=== PATIENT | female | born 1990 | race Caucasian/White ===

== ENCOUNTER 2016-10-08 18:06 | Emergency (ER) | payer OTHER ==
[2016-10-08 19:45] LABS: MEAN CORPUSCULAR HEMOGLOBIN 29.7 pg (27.0-33.0); MEAN CORPUSCULAR HGB CONC 31.9 g/dl (32.0-36.5); MEAN CORPUSCULAR VOLUME 93.2 fl (80.0-96.0); RED CELL DISTRIBUTION WIDTH 14.3 % (11.5-14.5); WHITE BLOOD COUNT 10.2 K/mm3 (4.0-10.0)
[2016-10-08 20:08] LABS: AMPHETAMINES LEVEL URINE POSITIVE (NEGATIVE); BENZODIAZEPINES URINE NEGATIVE (NEGATIVE); COCAINE METABOLITE URINE NEGATIVE (NEGATIVE); CONTROL LINE INT CTR LINE PRESENT; METHADONE URINE NEGATIVE (NEGATIVE); OPIATES URINE NEGATIVE (NEGATIVE); TRICYCLIC ANTIDEPRESS URINE POSITIVE (NEGATIVE)
[2016-10-08 20:13] LABS: CONTROL LINE HCG INT CTR LINE PRESENT
[2016-10-08 20:25] LABS: ALBUMIN 4.2 GM/DL (3.2-5.2); ALBUMIN/GLOBULIN RATIO 1.05 (1.00-1.93); ALKALINE PHOSPHATASE 94 U/L (45-117); ALT/SGPT 24 U/L (12-78); ANION GAP 8 MEQ/L (8-16); AST/SGOT 18 U/L (15-37); BILIRUBIN,DIRECT 0.1 MG/DL (0.0-0.2); BILIRUBIN,TOTAL 0.3 MG/DL (0.2-1.0); BLOOD UREA NITROGEN 14 MG/DL (7-18); CALCIUM LEVEL 9.4 MG/DL (8.5-10.1); CARBON DIOXIDE LEVEL 29 MEQ/L (21-32); CHLORIDE LEVEL 104 MEQ/L (98-107); CREATININE FOR GFR 0.86 MG/DL (0.55-1.02); GLOMERULAR FILTRATION RATE > 60.0 (>60); GLUCOSE, FASTING 103 MG/DL (70-105); SODIUM LEVEL 141 MEQ/L (136-145); TOTAL PROTEIN 8.2 GM/DL (6.4-8.2)
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
--- NOTE | 2016-10-08 22:03 | EDDOCDS ---
Physician Documentation [facility] Name: Saskia Jackson Age: 25 yrs Sex: Female : 1990 Arrival Date: 10/08/2016 Time: 18:06 Bed OBSERVATION Private MD: Disposition: 10/08/16 20:49 Discharged to Home/Self Care. Impression: Adult antisocial behavior, Inadequate social skills, not elsewhere classified. - Condition is Stable. - Medication Reconciliation, Local Pharmacy Hours form. - Follow up: Private Physician; When: Call to arrange an appointment; Reason: Recheck today's complaints. - Problem is an ongoing problem. - Symptoms have improved. Historical: - Allergies: no known allergies; - Home Meds: 1. Adderall XR 10 mg Oral cp24 1 cap once daily 2. Vistaril Oral Unknown 3. Trazodone Oral Unknown 4. Amitriptyline Oral Unknown - PMHx: ADHD; C7 fracture; chronic neck and back pain; right rib fracture; - PSHx: none; - Social history: Smoking status: Patient states was never smoker of tobacco. No barriers to communication noted, The patient speaks fluent [place], Speaks appropriately for age. - Family history: Not pertinent. - : The pt / caregiver states he / she is not on anticoagulants. Home medication list is obtained from the patient. - Exposure Risk Screening:: None identified. 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 2 in. (157.48 cm); pml 18:55 Pulse 156; Resp 28; Temp 100.0(O); Pulse Ox 97% on R/A; dpm 22:00 BP 134 / 88; Pulse 102; Resp 18; Temp 97.2(O); Pulse Ox 96% on R/A; rw1 18:48 Body Mass Index 20.12 (49.90 kg, 157.48 cm) pml MDM: 18:55 Consult PFS/PSA/Operations Manager Station ordered. cs11 18:55 Consult PFS/PSA/Operations Manager Station: Patient's case requires discussion with on-call cs11 Psychiatrist ordered. 18:55 PSA/PFS to call Nursing Rubber Splicer, to enter patient data on [place] Safe [place] if patient cs11 involuntarily admitted or transferred for SI or HI ordered. 18:55 Confirm accurate psychiatric medication list and times of last dosage ordered. cs11 18:55 Detain Pt Until Medically/PFS Cleared ordered. cs11 18:56 Acetaminophen Level Ordered. EDMS 18:56 Basic Metabolic Profile Ordered. EDMS 18:56 Complete Blood Count Ordered. EDMS 18:56 Drug Eval Toxicology ED Only Ordered. EDMS 18:56 Ethyl Alcohol (ethanol) Ordered. EDMS 18:56 HCG,Serum Qualitative Ordered. EDMS 18:56 Liver Profile Ordered. EDMS 18:56 Salicylate Level Ordered. EDMS 18:56 Thyroid Stimulating Hormone Ordered. EDMS 20:46 Acetaminophen Level Reviewed. cs11 20:46 Complete Blood Count Reviewed. cs11 20:46 Drug Eval Toxicology ED Only Reviewed. cs11 20:46 Salicylate Level Reviewed. cs11 20:46 Basic Metabolic Profile Reviewed. cs11 20:46 Ethyl Alcohol (ethanol) Reviewed. cs11 20:46 HCG,Serum Qualitative Reviewed. cs11 20:46 Liver Profile Reviewed. cs11 20:46 Thyroid Stimulating Hormone Reviewed. cs11 20:48 Consult PFS/PSA/Socail Worker: Cleared medically for eval ordered. cs11 20:59 [facility] Payment Agreement was scanned into [employer] and attached to record. zo 21:00 Financial registration complete. zo 21:10 Consult PFS/PSA/Socail Worker: Cleared medically for eval complete. jfb 21:10 Consult PFS/PSA/Operations Manager Station complete. jfb 21:10 Consult PFS/PSA/Operations Manager Station: Patient's case requires discussion with on-call jfb Psychiatrist complete. 21:10 PSA/PFS to call Nursing Rubber Splicer, to enter [place] data [place] if patient jfb involuntarily admitted or transferred for SI or HI complete. 21:22 Spine, Lumbosacral, Partial Ordered. EDMS Signatures: Dispatcher [employer] EDMS Marin Ocampo LPN LPN rw1 [place] Julie, PSA PSA jfb Quay, Paulina, RN RN pml Schiff, Craig, DO DO cs11 The chart was reviewed and I authenticate all verbal orders and agree with the evaluation and treatment provided.Attachments: 20:59 [facility] Payment Agreement zo MTDD
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
--- NOTE | 2016-10-10 23:04 | EDDOCDS ---
Physician Documentation [facility] Name: Saskia Jackson Age: 25 yrs Sex: Female : 1990 Arrival Date: 10/08/2016 Time: 18:06 Bed OBSERVATION Private MD: Disposition: 10/08/16 20:49 Discharged to Home/Self Care. Impression: Adult antisocial behavior, Inadequate social skills, not elsewhere classified. - Condition is Stable. - Medication Reconciliation, Local Pharmacy Hours form. - Follow up: Private Physician; When: Call to arrange an appointment; Reason: Recheck today's complaints. - Problem is an ongoing problem. - Symptoms have improved. Historical: - Allergies: no known allergies; - Home Meds: 1. Adderall XR 10 mg Oral cp24 1 cap once daily 2. Vistaril Oral Unknown 3. Trazodone Oral Unknown 4. Amitriptyline Oral Unknown - PMHx: ADHD; C7 fracture; chronic neck and back pain; right rib fracture; - PSHx: none; - Social history: Smoking status: Patient states was never smoker of tobacco. No barriers to communication noted, The patient speaks fluent Nigerien, Speaks appropriately for age. - Family history: Not pertinent. - : The pt / caregiver states he / she is not on anticoagulants. Home medication list is obtained from the patient. - Exposure Risk Screening:: None identified. 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 2 in. (157.48 cm); pml 18:55 Pulse 156; Resp 28; Temp 100.0(O); Pulse Ox 97% on R/A; dpm 22:00 BP 134 / 88; Pulse 102; Resp 18; Temp 97.2(O); Pulse Ox 96% on R/A; rw1 18:48 Body Mass Index 20.12 (49.90 kg, 157.48 cm) pml MDM: 18:55 Consult PFS/PSA/Nurse Orthopedic ordered. cs11 18:55 Consult PFS/PSA/Nurse Orthopedic: Patient's case requires discussion with on-call cs11 Psychiatrist ordered. 18:55 PSA/PFS to call Nursing Head Of History, to enter [place] data [place] if patient cs11 involuntarily admitted or transferred for SI or HI ordered. 18:55 Confirm accurate psychiatric medication list and times of last dosage ordered. cs11 18:55 Detain Pt Until Medically/PFS Cleared ordered. cs11 18:56 Acetaminophen Level Ordered. EDMS 18:56 Basic Metabolic Profile Ordered. EDMS 18:56 Complete Blood Count Ordered. EDMS 18:56 Drug Eval Toxicology ED Only Ordered. EDMS 18:56 Ethyl Alcohol (ethanol) Ordered. EDMS 18:56 HCG,Serum Qualitative Ordered. EDMS 18:56 Liver Profile Ordered. EDMS 18:56 Salicylate Level Ordered. EDMS 18:56 Thyroid Stimulating Hormone Ordered. EDMS 20:46 Acetaminophen Level Reviewed. cs11 20:46 Complete Blood Count Reviewed. cs11 20:46 Drug Eval Toxicology ED Only Reviewed. cs11 20:46 Salicylate Level Reviewed. cs11 20:46 Basic Metabolic Profile Reviewed. cs11 20:46 Ethyl Alcohol (ethanol) Reviewed. cs11 20:46 HCG,Serum Qualitative Reviewed. cs11 20:46 Liver Profile Reviewed. cs11 20:46 Thyroid Stimulating Hormone Reviewed. cs11 20:48 Consult PFS/PSA/Socail Worker: Cleared medically for eval ordered. cs11 20:59 [facility] [place] Agreement was scanned into [employer] and attached to record. zo 21:00 Financial registration complete. zo 21:10 Consult PFS/PSA/Socail Worker: Cleared medically for eval complete. jfb 21:10 Consult PFS/PSA/Nurse Orthopedic complete. jfb 21:10 Consult PFS/PSA/Nurse Orthopedic: Patient's case requires discussion with on-call jfb Psychiatrist complete. 21:10 PSA/PFS to call Nursing Head Of History, to [place] if patient jfb involuntarily admitted or transferred for SI or HI complete. 21:22 Spine, Lumbosacral, Partial Ordered. EDMS 22:07 M[facility] Legal paperwork was scanned into [employer] and attached to record. shilo 10/09 09:52 PCR was scanned into [employer] and attached to record. gb 09:52 T-Sheet-- Draft Copy was scanned into [employer] and attached to record. gb Signatures: Dispatcher [employer] EDMS Danis Huang, PSA PSA jl Isabelle Edward, Reg Reg gb Marin Ocampo,CONVERTING OPERATOR CONVERTING OPERATOR rw1 Sydney Sohre Julie, PSA PSA jfb Quay, Paulina,RN RN pml Brian Su, DO cs11 The chart was reviewed and I authenticate all verbal orders and agree with the evaluation and treatment provided.Attachments: 10/08 20:59 [facility] Payment Agreement zo 09:52 T-Sheet-- Draft Copy gb Chart Complete MTDD
--- NOTE | 2016-10-10 23:04 | EDDOCDS ---
Physician Documentation [facility] Name: Saskia Jackson Age: 25 yrs Sex: Female : 1990 Arrival Date: 10/08/2016 Time: 18:06 Bed OBSERVATION Private MD: Disposition: 10/08/16 20:49 Discharged to Home/Self Care. Impression: Adult antisocial behavior, Inadequate social skills, not elsewhere classified. - Condition is Stable. - Medication Reconciliation, Local Pharmacy Hours form. - Follow up: Private Physician; When: Call to arrange an appointment; Reason: Recheck today's complaints. - Problem is an ongoing problem. - Symptoms have improved. Historical: - Allergies: no known allergies; - Home Meds: 1. Adderall XR 10 mg Oral cp24 1 cap once daily 2. Vistaril Oral Unknown 3. Trazodone Oral Unknown 4. Amitriptyline Oral Unknown - PMHx: ADHD; C7 fracture; chronic neck and back pain; right rib fracture; - PSHx: none; - Social history: Smoking status: Patient states was never smoker of tobacco. No barriers to communication noted, The patient speaks fluent Vietnamese, Speaks appropriately for age. - Family history: Not pertinent. - : The pt / caregiver states he / she is not on anticoagulants. Home medication list is obtained from the patient. - Exposure Risk Screening:: None identified. FINISH GRINDER: 10/08 18:27 LMP 10/03/2015 pml Vital Signs: 18:48 Weight 49.9 kg / 110.01 lbs; Height 5 ft. 2 in. (157.48 cm); pml 18:55 Pulse 156; Resp 28; Temp 100.0(O); Pulse Ox 97% on R/A; dpm 22:00 BP 134 / 88; Pulse 102; Resp 18; Temp 97.2(O); Pulse Ox 96% on R/A; rw1 18:48 Body Mass Index 20.12 (49.90 kg, 157.48 cm) pml MDM: 18:55 Consult PFS/PSA/Associate Attorney ordered. cs11 18:55 Consult PFS/PSA/Associate Attorney: Patient's case requires discussion with on-call cs11 Psychiatrist ordered. 18:55 PSA/PFS to call Nursing Blow Down Helper, to enter patient data on [place] Safe Act if patient cs11 involuntarily admitted or transferred for SI or HI ordered. 18:55 Confirm accurate psychiatric medication list and times of last dosage ordered. cs11 18:55 Detain Pt Until Medically/PFS Cleared ordered. cs11 18:56 Acetaminophen Level Ordered. EDMS 18:56 Basic Metabolic Profile Ordered. EDMS 18:56 Complete Blood Count Ordered. EDMS 18:56 Drug Eval Toxicology ED Only Ordered. EDMS 18:56 Ethyl Alcohol (ethanol) Ordered. EDMS 18:56 HCG,Serum Qualitative Ordered. EDMS 18:56 Liver Profile Ordered. EDMS 18:56 Salicylate Level Ordered. EDMS 18:56 Thyroid Stimulating Hormone Ordered. EDMS 20:46 Acetaminophen Level Reviewed. cs11 20:46 Complete Blood Count Reviewed. cs11 20:46 Drug Eval Toxicology ED Only Reviewed. cs11 20:46 Salicylate Level Reviewed. cs11 20:46 Basic Metabolic Profile Reviewed. cs11 20:46 Ethyl Alcohol (ethanol) Reviewed. cs11 20:46 HCG,Serum Qualitative Reviewed. cs11 20:46 Liver Profile Reviewed. cs11 20:46 Thyroid Stimulating Hormone Reviewed. cs11 20:48 Consult PFS/PSA/Socail Worker: Cleared medically for eval ordered. cs11 20:59 [facility] Payment Agreement was scanned into [employer] and attached to record. zo 21:00 Financial registration complete. zo 21:10 Consult PFS/PSA/Socail Worker: Cleared medically for eval complete. jfb 21:10 Consult PFS/PSA/Associate Attorney complete. jfb 21:10 Consult PFS/PSA/Associate Attorney: Patient's case requires discussion with on-call jfb Psychiatrist complete. 21:10 PSA/PFS to call Nursing Blow Down Helper, to enter patient data [place] Safe [place] if patient jfb involuntarily admitted or transferred for SI or HI complete. 21:22 Spine, Lumbosacral, Partial Ordered. EDMS 22:07 [facility] Legal paperwork was scanned into [employer] and attached to record. shilo 10/09 09:52 PCR was scanned into [employer] and attached to record. gb 09:52 T-Sheet-- Draft Copy was scanned into [employer] and attached to record. gb Signatures: Dispatcher [employer] EDMS Danis Huang, PSA PSA jl Isabelle Edward, Reg Reg gb Marin Ocampo,HEAD TRIMMER HEAD TRIMMER rw1 [place] Julie, PSA PSA jfb Quay, Paulina,RN RN pml Brian Su, DO cs11 The chart was reviewed and I authenticate all verbal orders and agree with the evaluation and treatment provided.Attachments: 10/08 20:59 [facility] Payment Agreement zo 09:52 T-Sheet-- Draft Copy gb Chart Complete MTDD
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
== END 2016-10-08 22:02 | disposition home or self-care (01) ==
LOC: M ED 18:06
DX: Z72.811 Adult antisocial behavior (principal); Z73.4 Inadequate social skills, not elsewhere classified; F90.9 Attention-deficit hyperactivity disorder, unspecified type; M54.9 Dorsalgia, unspecified; Z87.81 Personal history of (healed) traumatic fracture; Z79.899 Other long term (current) drug therapy
CPT/HCPCS: 36415; 72100; 80048; 80076; 80306; 84443; 84703; 85027; 99284; G0480

== ENCOUNTER → 2016-10-08 | Outpatient (CLI) | payer OTHER ==
[~2016-10-08] MED LIST: ADDE10CA PO; ANBEEL TOP; LEXA1TAB PO; LIDO5DIS36 TD; METH-107 PO; MOTR200T44 PO; ORTHTAB5 PO; TOPA50TA7 PO; TRAZ50TA4 PO; TYLE325T5 PO; ZANA2CAP PO
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
== END ==
LOC: M PAIN 13:20
PROVIDERS: ATTEND Nurse Practitioner Family
DX: M79.1 Myalgia (principal); M54.2 Cervicalgia; Z79.899 Other long term (current) drug therapy; F32.9 Major depressive disorder, single episode, unspecified; Z87.891 Personal history of nicotine dependence

== ENCOUNTER → 2016-12-30 | Outpatient (CLI) | payer OTHER ==
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
== END ==
LOC: M PAIN 13:20
PROVIDERS: ATTEND Nurse Practitioner Family
DX: M79.1 Myalgia (principal); M54.2 Cervicalgia; G43.909 Migraine, unspecified, not intractable, without status migrainosus; F32.9 Major depressive disorder, single episode, unspecified; G47.00 Insomnia, unspecified; F43.10 Post-traumatic stress disorder, unspecified; R41.3 Other amnesia; Z79.899 Other long term (current) drug therapy; Z91.5 Personal history of self-harm

== ENCOUNTER → 2017-01-03 | Outpatient (CLI) | payer OTHER ==
[~2017-01-03] MED LIST changes: +BUPIVACAINE HCL 0.25% 10 ML VIAL As Ordered ONE; +BUPIVACAINE HCL 0.25% 30 ML VIAL As Ordered ONE; +TRIAMCINOLONE ACETONIDE SUSP 40 MG/ML VIAL (J3301) As Ordered ONE; +diazePAM 5 MG TAB As Ordered ONE; +oxyCODONE 5MG TAB As Ordered ONE
--- NOTE | 2017-01-09 23:28 | ECWPNPC ---
PATIENT NAME: DAYNA VELARDE : 1990 GENDER: FEMALE VISIT DATE: 01/03/2017 DISCHARGE DATE: 01/03/17 1454 VISIT LOCKED DATE TIME: PHYSICIAN: STEVE GARCIAS RESOURCE: STEVE GARCIAS REASON FOR APPOINTMENT 1. TPI HISTORY OF PRESENT ILLNESS HISTORY OF PRESENT ILLNESS: PAIN THE PATIENT DESCRIBES THE PAIN... FALL RISK SCREENING: SCREENING :NO FALLS IN THE PAST YEAR CURRENT MEDICATIONS TAKING ADDERALL XR 20 MG CAPSULE EXTENDED RELEASE 24 HOUR 1 CAPSULE IN THE MORNING ORALLY ONCE A DAY, NOTES: 01/02/17 1100 TAKING TRAZODONE HCL 150 MG TABLET 1 TABLET AT BEDTIME ORALLY ONCE A DAY, NOTES: 01/02/172099 TAKING VENLAFAXINE HCL ER 225 MG TABLET EXTENDED RELEASE 24 HOUR 1 TABLET WITH FOOD ORALLY ONCE A DAY, NOTES: 01/02/172129 TAKING ORTHO TRI-CYCLEN (28) 0.18/0.215/0.25 MG-35 MCG TABLET 1 TABLET ORALLY ONCE A DAY, NOTES: NONE LAST WEEK TAKING TOPAMAX 100 MG TABLET 1 TABLET ORALLY TWICE A DAY, NOTES: 01/02/172129 TAKING PROPRANOLOL HCL 60 MG TABLET 1 TABLET ORALLY TWICE A DAY, NOTES: 01/02/172129 TAKING SEROQUEL 50 MG TABLET 1 TABLET ORALLY ONCE A DAY, NOTES: 01/01/17 NOT-TAKING VISTARIL 50 MG CAPSULE 2 CAPSULES ORALLY TID NOT-TAKING IRON-C 65MGS 1 CAP ORALLY DAILY NOT-TAKING VITAMIN D-3 1000 UNIT CAPSULE 1 CAPSULE ORALLY ONCE A DAY NOT-TAKING VITAMIN B-2 100 MG TABLET 1 TABLET WITH A MEAL ORALLY ONCE A DAY NOT-TAKING FISH OIL 500 MG CAPSULE 1 CAPSULE ORALLY DAILY NOT-TAKING MELATONIN 3 MG TABLET 1 TABLET AT BEDTIME NEEDED WITH FOOD ORALLY ONCE A DAY NOT-TAKING AMITRIPTYLINE HCL 10 MG TABLET 1 TABLET ORALLY 1 TAB IN A.M., 3 TABS IN P.M. NOT-TAKING ZOLMITRIPTAN 2.5 MG TABLET 1 TABLET NEEDED ONE TIME ORALLY ONCE A DAY MEDICATION LIST REVIEWED AND RECONCILED WITH THE PATIENT PAST MEDICAL HISTORY DEPRESSION INSOMNIA AMNESIA, PTBI POST MVI BACK, NECK PAIN PTSD SUICIDE ATTEMPT ALLERGIES N.K.D.A. SOCIAL HISTORY GENERAL: PAIN CLINIC PFS, CLERGY, PUBLIC HEALTH REFERRALS CLERGY REFERRAL NEEDED?NO WAS THE PROVIDER NOTIFIED OF ANY PERTINENT INFO?NO PFS REFERRAL NEEDED?NO PUBLIC HEALTH REFERRAL NEEDED?NO PATIENT: ____. REVIEW OF SYSTEMS CONSTITUTIONAL: ANY CHANGE IN YOUR MEDICAL CONDITION? NO . CHILLS NO . FEVER NO . INFECTION: DO YOU HAVE NEW INFECTIONS? NO . DO YOU HAVE HISTORY OF MRSA? NO . MUSCULOSKELETAL: ANY NEW PATTERNS OF PAIN OR NUMBNESS? NO . GASTROENTEROLOGY: ANY NEW CHANGE IN BOWEL CONTROL? NO . GENITOURINARY: ANY NEW CHANGE IN BLADDER CONTROL? NO . IS THERE A CHANCE YOU COULD BE ? NO . HEMATOLOGY/LYMPH: DO YOU TAKE ANY BLOOD THINNERS? (FOR EXAMPLE- COUMADIN, PLAVIX, AGGRENOX, PLATEL, PRADAXA, OR XARELTO) NO . WHEN WAS YOUR LAST DOSE? DATE: TIME: . NEUROLOGY: HAVE YOU FALLEN IN THE PAST 6 MONTHS? YES NO ED EVAL . ANY NEW EXTREMITY NUMBNESS OR WEAKNESS? NO . CARDIOLOGY: DO YOU HAVE A PACEMAKER OR DEFIBRILLATOR? NO . RESPIRATORY: HAVE YOU BEEN SICK IN THE PAST WEEK? NO . FEVER NO . FLU LIKE SYMPTOMS? NO . COUGH NO . INTEGUMENTARY: DO YOU HAVE ANY RASHES OR OPEN SORES? NO . ALLERGIC/IMMUNO: ARE YOU ALLERGIC TO SHELLFISH OR IV DYE? NO . ANY NEW ALLERGIES? NO . PSYCHIATRIC: DO YOU HAVE THOUGHTS OF HURTING YOURSELF OR SOMEONE ELSE? NO . ARE YOU ABUSED, NEGLECTED, OR IN AN UNSAFE ENVIRONMENT? NO . ENDOCRINOLOGY: ARE YOU DIABETIC? NO . OTHER: DO YOU NEED ANY PRESCRIPTIONS? NO . IF YES, PLEASE LIST: ____ . ANY NEW PROBLEMS WITH YOUR MEDICATIONS? NO . WHEN DID YOU LAST EAT? ____01/02/17 2100 . WHEN DID YOU LAST DRINK? ____01/03/17 1000 . WHAT DID YOU LAST DRINK? ____WATER . NAME OF PERSON DRIVING YOU HOME? ____ALYSSA . DO YOU HAVE ANY OTHER QUESTIONS OR CONCERNS NO . REVIEWED BY: PROVIDER: . VITAL SIGNS WT 125 LBS, HT 63", BMI 22.14 INDEX, BP 105/62 MM HG, HR 73 /MIN, RR 16 /MIN, TEMP 97.7 F, OXYGEN SAT % 97, NA INITIALS AW 1335, REVIEWED BY: MLF. ASSESSMENTS MYALGIA - M79.1 (PRIMARY) PROCEDURES PN TRIGGER POINT INJECTION WITH STEROIDS PRE PROCEDURE DIAGNOSIS 1. MYALGIA 2. PAIN AT BILATERAL NECK AREA, BILATERAL SHOULDER AREA, AND BILATERAL THORACIC AREA POST PROCEDURE DIAGNOSIS 1. MYALGIA 2. PAIN AT BILATERAL NECK AREA, BILATERAL SHOULDER AREA, AND BILATERAL THORACIC AREA PROCEDURE TRIGGER POINT INJECTION AT BILATERAL NECK AREA, BILATERAL SHOULDER AREA, AND BILATERAL THORACIC AREA SURGEON DR. STEVE GARCIAS SAND CARRIER NONE ANESTHESIA LOCAL PRE PROCEDURE NOTE THE PATIENT HAS A HISTORY OF CHRONIC PAIN AT THE RIGHT AND LEFT NECK AREA, RIGHT AND LEFT SHOULDER AREA, AND RIGHT AND LEFT THORACIC AREA. I EVALUATE THE PATIENT AND REVIEWED THE CHART. THERE IS EVIDENCE OF BANDS OF TISSUE WITH RESTRICTION OF MOVEMENT AND PRESENCE OF TRIGGER POINT AT THE AFFECTED AREA. I WENT OVER THE RISKS, ALTERNATIVES, AND BENEFITS ASSOCIATED WITH THIS PROCEDURE. THE PATIENT WOULD LIKE TO PROCEED AND GIVE CONSENT TO PERFORMED THE PROCEDURE. THE PATIENT DENIES UNEXPLAINABLE WEIGHT LOSS, FEVER, CHILLS, OR NEW CHANGES IN URINARY OR BOWEL CONTROL DESCRIPTION OF PROCEDURE THE PATIENT WAS BROUGHT TO THE PROCEDURE ROOM AND PLACED IN THE SITTING POSITION. THE AREA WAS CLEANED WITH ALCOHOL. THE PROCEDURE WAS DONE USING ASEPTIC STERILE TECHNIQUE. I CHECKED LATERALITY AND THE LEVEL WHERE THE PROCEDURE WAS GOING TO BE PERFORMED WITH THE PATIENT AND THE SUPPORTING STAFF AT THE MOMENT OF THE TIME OUT IN THE PROCEDURE ROOM. USING A 25-GAUGE NEEDLE, TRIGGER POINTS WERE INJECTED AT THE RIGHT AND LEFT NECK AREA, RIGHT AND LEFT SHOULDER AREA, AND RIGHT AND LEFT THORACIC AREA WITH A TOTAL OF 40 ML OF BUPIVACAINE 0.25% AND KENALOG 40 MG. THERE WAS NO EVIDENCE OF BLOOD, PARESTHESIA OR CEREBROSPINAL FLUID DURING THE PROCEDURE. THE PATIENT WAS SENT TO THE RECOVERY ROOM. THE PATIENT WAS MOVING THE EXTREMITIES AND DOING WELL. THERE WAS NO COMPLICATION DURING THE PROCEDURE POST PROCEDURE NOTE THE PATIENT WILL BE SEEN IN A FOLLOW UP IN THE NEXT FEW WEEKS. INSTRUCTIONS WERE GIVEN, QUESTIONS WERE ANSWERED, AND THE PATIENT EXPRESSED UNDERSTANDING AND AGREES WITH THE PLAN. I, MG COSBY, DOCUMENTED THE ABOVE INFORMATION ACTING A SCRIBE FOR DR. GARCIAS. I HAVE REVIEWED THE ABOVE DOCUMENT, WRITTEN BY MG COSBY SCRIBRony AND I VERIFY THAT IT IS ACCURATE. PROCEDURE CODES 62921 INJECT TRIGGER POINTS 3/> DISPOSITION & COMMUNICATION FOLLOW UP 3 WEEKS ELECTRONICALLY SIGNED BY STEVE GARCIAS MD ON 01/09/2017 AT 05:53 PM EDT DISCLAIMER : THIS IS A VISIT SUMMARY EXTRACTED FROM THE [employer] CHART. IT IS NOT A COPY OF THE [employer] PROGRESS NOTE. PRECIOUS
== END ==
LOC: M PAIN 13:20
PROVIDERS: ATTEND Anesthesiology
DX: G89.29 Other chronic pain (principal); M79.1 Myalgia; M54.2 Cervicalgia; M25.511 Pain in right shoulder; M25.512 Pain in left shoulder; M54.6 Pain in thoracic spine; F32.9 Major depressive disorder, single episode, unspecified; G47.00 Insomnia, unspecified; F43.10 Post-traumatic stress disorder, unspecified; Z91.5 Personal history of self-harm; Z79.899 Other long term (current) drug therapy
CPT/HCPCS: 20553; J3301

== ENCOUNTER → 2017-01-26 | Outpatient (CLI) | payer OTHER ==
[~2017-01-26] MED LIST changes: -BUPIVACAINE HCL 0.25% 10 ML VIAL As Ordered ONE; -BUPIVACAINE HCL 0.25% 30 ML VIAL As Ordered ONE; -TRIAMCINOLONE ACETONIDE SUSP 40 MG/ML VIAL (J3301) As Ordered ONE; -diazePAM 5 MG TAB As Ordered ONE; -oxyCODONE 5MG TAB As Ordered ONE
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
== END ==
LOC: M PAIN 14:20
PROVIDERS: ATTEND Nurse Practitioner Family
DX: G89.29 Other chronic pain (principal); M79.1 Myalgia; M54.2 Cervicalgia; F32.9 Major depressive disorder, single episode, unspecified; G47.00 Insomnia, unspecified; F43.10 Post-traumatic stress disorder, unspecified; Z79.899 Other long term (current) drug therapy; Z91.5 Personal history of self-harm; Z87.820 Personal history of traumatic brain injury

== ENCOUNTER → 2017-04-01 | Outpatient (CLI) | payer OTHER ==
[~2017-04-01] MED LIST changes: -ADDE10CA PO; +ADDE10CA3 PO; +BUPR15TA PO; +BUPR300T34 PO; +CLAR10CA3 PO; +CLAR1TAB2 PO; +COLA100C5 PO; -LIDO5DIS36 TD; +LIDO5DIS41 TD; -METH-107 PO; +METH1TAB40 PO; +ORTHTAB14 PO; +ORTHTAB15 PO; -ORTHTAB5 PO; +PRAZ5CAP PO; +PROP10TA56 PO; +QUET1TAB8 PO; +QUET1TAB9 PO; +RISP0.5T21 PO; +SERO1TAB PO; -TOPA50TA7 PO; +TOPA50TA8 PO; +TOPI100T9 PO; +TRAZ50TA11 PO; -TRAZ50TA4 PO; +TRAZO50TA PO; +VENL75CA2 PO; +VENL75TA2 PO; +ZOLM5TAB SL
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
== END ==
LOC: M PAIN 14:40
PROVIDERS: ATTEND Nurse Practitioner Family
DX: G89.29 Other chronic pain (principal); M54.2 Cervicalgia; M79.1 Myalgia; F32.9 Major depressive disorder, single episode, unspecified; G47.00 Insomnia, unspecified; F43.10 Post-traumatic stress disorder, unspecified; Z79.899 Other long term (current) drug therapy; Z87.820 Personal history of traumatic brain injury; Z91.5 Personal history of self-harm

== ENCOUNTER → 2017-04-25 | Outpatient (CLI) | payer OTHER ==
[~2017-04-25] MED LIST changes: +BUPIVACAINE HCL 0.25% 10 ML VIAL As Ordered ONE; +BUPIVACAINE HCL 0.25% 30 ML VIAL As Ordered ONE; +TRIAMCINOLONE ACETONIDE SUSP 40 MG/ML VIAL (J3301) As Ordered ONE; +diazePAM 5 MG TAB As Ordered ONE; +oxyCODONE 5MG TAB As Ordered ONE
--- NOTE | 2017-05-01 23:32 | ECWPNPC ---
PATIENT NAME: DAYNA VELARDE : 1990 GENDER: FEMALE VISIT DATE: 04/25/2017 DISCHARGE DATE: 04/25/17 1132 VISIT LOCKED DATE TIME: PHYSICIAN: STEVE GARCIAS RESOURCE: STEVE GARCIAS REASON FOR APPOINTMENT 1. TPI BILATERAL NECK, BILATERAL SHOULDER, BILATERAL THORACIC, AND RIGHT LOWER BACK HISTORY OF PRESENT ILLNESS HISTORY OF PRESENT ILLNESS: PAIN THE PATIENT DESCRIBES THE PAIN... FALL RISK SCREENING: SCREENING :NO FALLS IN THE PAST YEAR CURRENT MEDICATIONS TAKING ADDERALL XR 20 MG CAPSULE EXTENDED RELEASE 24 HOUR 1 CAPSULE IN THE MORNING ORALLY ONCE A DAY, NOTES: 04-25-17 7AM TAKING TRAZODONE HCL 150 MG TABLET 1 TABLET AT BEDTIME ORALLY ONCE A DAY, NOTES: 04-23-17 PM TAKING VENLAFAXINE HCL ER 225 MG TABLET EXTENDED RELEASE 24 HOUR 1 TABLET WITH FOOD ORALLY ONCE A DAY, NOTES: 04-25-17 0700 TAKING TOPAMAX 100 MG TABLET 1 TABLET ORALLY TWICE A DAY, NOTES: 04-23-17 PM TAKING SEROQUEL 50 MG TABLET 1 TABLET ORALLY ONCE A DAY, NOTES: 04-23-17 TAKING BOTOX 200 UNIT SOLUTION RECONSTITUTED INJECTION , NOTES: MARCH TAKING LORATADINE 10 MG TABLET 1 TABLET ORALLY ONCE A DAY, NOTES: 04-25-16 07 TAKING BUPROPION HCL 100 MG TABLET EXTENDED RELEASE 3 TABS ORALLY DAILY, NOTES: 04-25-17699 TAKING ZOLMITRIPTAN 5 MG TABLET 1 TABLET NEEDED ONE TIME ORALLY ONCE A DAY, NOTES: COUPLE DAYS AGO NOT-TAKING PROPRANOLOL HCL 60 MG TABLET 1 TABLET ORALLY TID NOT-TAKING FISH OIL 500 MG CAPSULE 1 CAPSULE ORALLY DAILY NOT-TAKING VISTARIL 50 MG CAPSULE 2 CAPSULES ORALLY TID NOT-TAKING IRON-C 65MGS 1 CAP ORALLY DAILY NOT-TAKING VITAMIN D-3 1000 UNIT CAPSULE 1 CAPSULE ORALLY ONCE A DAY NOT-TAKING VITAMIN B-2 100 MG TABLET 1 TABLET WITH A MEAL ORALLY ONCE A DAY NOT-TAKING MELATONIN 3 MG TABLET 1 TABLET AT BEDTIME NEEDED WITH FOOD ORALLY ONCE A DAY NOT-TAKING AMITRIPTYLINE HCL 10 MG TABLET 1 TABLET ORALLY 1 TAB IN A.M., 3 TABS IN P.M. MEDICATION LIST REVIEWED AND RECONCILED WITH THE PATIENT PAST MEDICAL HISTORY DEPRESSION INSOMNIA AMNESIA, PTBI POST MVI BACK, NECK PAIN PTSD SUICIDE ATTEMPT ALLERGIES N.K.D.A. REVIEW OF SYSTEMS REVIEWED BY: PROVIDER: . CONSTITUTIONAL: ANY CHANGE IN YOUR MEDICAL CONDITION? NO . CHILLS NO . FEVER NO . INFECTION: DO YOU HAVE NEW INFECTIONS? NO . DO YOU HAVE HISTORY OF MRSA? NO . MUSCULOSKELETAL: ANY NEW PATTERNS OF PAIN OR NUMBNESS? NO . GASTROENTEROLOGY: ANY NEW CHANGE IN BOWEL CONTROL? NO . GENITOURINARY: ANY NEW CHANGE IN BLADDER CONTROL? NO . IS THERE A CHANCE YOU COULD BE ? NO . HEMATOLOGY/LYMPH: DO YOU TAKE ANY BLOOD THINNERS? (FOR EXAMPLE- COUMADIN, PLAVIX, AGGRENOX, PLATEL, PRADAXA, OR XARELTO) NO . WHEN WAS YOUR LAST DOSE? DATE: TIME: . NEUROLOGY: HAVE YOU FALLEN IN THE PAST 6 MONTHS? YES . ANY NEW EXTREMITY NUMBNESS OR WEAKNESS? NO . CARDIOLOGY: DO YOU HAVE A PACEMAKER OR DEFIBRILLATOR? NO . RESPIRATORY: HAVE YOU BEEN SICK IN THE PAST WEEK? NO . FEVER NO . FLU LIKE SYMPTOMS? NO . COUGH NO . INTEGUMENTARY: DO YOU HAVE ANY RASHES OR OPEN SORES? NO . ALLERGIC/IMMUNO: ARE YOU ALLERGIC TO SHELLFISH OR IV DYE? NO . ANY NEW ALLERGIES? NO . PSYCHIATRIC: DO YOU HAVE THOUGHTS OF HURTING YOURSELF OR SOMEONE ELSE? NO . ARE YOU ABUSED, NEGLECTED, OR IN AN UNSAFE ENVIRONMENT? NO . ENDOCRINOLOGY: ARE YOU DIABETIC? NO . OTHER: DO YOU NEED ANY PRESCRIPTIONS? NO . IF YES, PLEASE LIST: ____ . ANY NEW PROBLEMS WITH YOUR MEDICATIONS? NO . WHEN DID YOU LAST EAT? 04-24-17 9PM . WHEN DID YOU LAST DRINK? 04-25-17 THIS AM . WHAT DID YOU LAST DRINK? WATER . NAME OF PERSON DRIVING YOU HOME? ANNIE . DO YOU HAVE ANY OTHER QUESTIONS OR CONCERNS YES, HOW CAN I GO ABOUT ADDING BODY PARTS/AREAS FOR TPI? THIS PROCEDURE WORKS VERY WELL AND I'D LIKE TO WORK ON MY NECK AND LOWER BACK WELL. &NBSP;. VITAL SIGNS WT 119 LBS, HT 63", BMI 21.08 INDEX, BP 123/75 MM HG, HR 111 /MIN, RR 16 /MIN, TEMP 98.2 F, OXYGEN SAT % 100%, NA INITIALS SC 10:14, REVIEWED BY: CM. ASSESSMENTS MYALGIA - M79.1 (PRIMARY) PROCEDURES PN TRIGGER POINT INJECTION WITH STEROIDS PRE PROCEDURE DIAGNOSIS 1. MYALGIA 2. PAIN AT BILATERAL NECK, BILATERAL SHOULDER, BILATERAL THORACIC, AND RIGHT LOWER BACK POST PROCEDURE DIAGNOSIS 1. MYALGIA 2. PAIN AT BILATERAL NECK, BILATERAL SHOULDER, BILATERAL THORACIC, AND RIGHT LOWER BACK PROCEDURE TRIGGER POINT INJECTION AT BILATERAL NECK, BILATERAL SHOULDER, BILATERAL THORACIC, AND RIGHT LOWER BACK SURGEON DR. STEVE GARCIAS [employer]ILDER NONE ANESTHESIA LOCAL PRE PROCEDURE NOTE THE PATIENT HAS A HISTORY OF CHRONIC PAIN AT THE RIGHT AND LEFT NECK AREA, RIGHT AND LEFT SHOULDER AREA, RIGHT AND LEFT THORACIC AREA, AND THE RIGHT LOWER BACK AREA. I EVALUATE THE PATIENT AND REVIEWED THE CHART. THERE IS EVIDENCE OF BANDS OF TISSUE WITH RESTRICTION OF MOVEMENT AND PRESENCE OF TRIGGER POINT AT THE AFFECTED AREA. I WENT OVER THE RISKS, ALTERNATIVES, AND BENEFITS ASSOCIATED WITH THIS PROCEDURE. THE PATIENT WOULD LIKE TO PROCEED AND GIVE CONSENT TO , PERFORMED THE PROCEDURE. THE PATIENT DENIES UNEXPLAINABLE WEIGHT LOSS, FEVER, CHILLS, OR NEW CHANGES IN URINARY OR BOWEL CONTROL DESCRIPTION OF PROCEDURE THE PATIENT WAS BROUGHT TO THE PROCEDURE ROOM AND PLACED IN THE SITTING POSITION. THE AREA WAS CLEANED WITH ALCOHOL. THE PROCEDURE WAS DONE USING ASEPTIC STERILE TECHNIQUE. I CHECKED LATERALITY AND THE LEVEL WHERE THE PROCEDURE WAS GOING TO BE PERFORMED WITH THE PATIENT AND THE SUPPORTING STAFF AT THE MOMENT OF THE TIME OUT IN THE PROCEDURE ROOM. USING A 25-GAUGE NEEDLE, TRIGGER POINTS WERE INJECTED AT THE RIGHT AND LEFT NECK AREA, RIGHT AND LEFT SHOULDER AREA, RIGHT AND LEFT THORACIC AREA, AND THE RIGHT LOWER BACK AREA WITH A TOTAL OF 40 ML OF BUPIVACAINE 0.25% AND KENALOG 40 MG. THERE WAS NO EVIDENCE OF BLOOD, PARESTHESIA OR CEREBROSPINAL FLUID DURING THE PROCEDURE. THE PATIENT WAS SENT TO THE RECOVERY ROOM. THE PATIENT WAS MOVING THE EXTREMITIES AND DOING WELL. THERE WAS NO COMPLICATION DURING THE PROCEDURE POST PROCEDURE NOTE THE PATIENT WILL BE SEEN IN A FOLLOW UP IN THE NEXT FEW WEEKS. INSTRUCTIONS WERE GIVEN, QUESTIONS WERE ANSWERED, AND THE PATIENT EXPRESSED UNDERSTANDING AND AGREES WITH THE PLAN. I, DEE PARK, DOCUMENTED THE ABOVE INFORMATION ACTING A SCRIBE FOR DR. GARCIAS. I, DR. GARCIAS, HAVE REVIEWED THE ABOVE DOCUMENT, SCRIBED BY DEE PARK, AND I VERIFY THAT IT IS ACCURATE PROCEDURE CODES 75397 INJECT TRIGGER POINTS 3/> DISPOSITION & COMMUNICATION FOLLOW UP 3 WEEKS ELECTRONICALLY SIGNED BY STEVE GARCIAS MD ON 05/01/2017 AT 07:47 AM EDT DISCLAIMER : THIS IS A VISIT SUMMARY EXTRACTED FROM THE [employer] CHART. IT IS NOT A COPY OF THE [employer] PROGRESS NOTE. PRECIOUS
== END ==
LOC: M PAIN 08:30
PROVIDERS: ATTEND Anesthesiology
DX: G89.29 Other chronic pain (principal); M54.2 Cervicalgia; M25.511 Pain in right shoulder; M25.512 Pain in left shoulder; M54.6 Pain in thoracic spine; M54.5 Low back pain; M79.1 Myalgia; F32.9 Major depressive disorder, single episode, unspecified; G47.30 Sleep apnea, unspecified; F43.10 Post-traumatic stress disorder, unspecified; Z91.5 Personal history of self-harm; Z79.899 Other long term (current) drug therapy
CPT/HCPCS: 20553; J3301

== ENCOUNTER → 2017-05-16 | Outpatient (CLI) | payer OTHER ==
[~2017-05-16] MED LIST changes: -BUPIVACAINE HCL 0.25% 10 ML VIAL As Ordered ONE; -BUPIVACAINE HCL 0.25% 30 ML VIAL As Ordered ONE; -TRIAMCINOLONE ACETONIDE SUSP 40 MG/ML VIAL (J3301) As Ordered ONE; -diazePAM 5 MG TAB As Ordered ONE; -oxyCODONE 5MG TAB As Ordered ONE
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
== END ==
LOC: M PAIN 08:45
PROVIDERS: ATTEND Nurse Practitioner Family
DX: G89.29 Other chronic pain (principal); M54.2 Cervicalgia; M79.1 Myalgia; F32.9 Major depressive disorder, single episode, unspecified; G47.30 Sleep apnea, unspecified; F43.10 Post-traumatic stress disorder, unspecified; Z79.899 Other long term (current) drug therapy; Z87.820 Personal history of traumatic brain injury; Z91.5 Personal history of self-harm

== ENCOUNTER 2017-05-17 14:19 | Inpatient (IN) | payer OTHER ==
[~2017-05-17] VITALS: Ht 160 cm; Wt 51.9 kg
[~2017-05-17 14:19] MED LIST changes: -BUPR15TA PO; -BUPR300T34 PO; -CLAR10CA3 PO; -CLAR1TAB2 PO; -COLA100C5 PO; -ORTHTAB15 PO; -PRAZ5CAP PO; -PROP10TA56 PO; -QUET1TAB8 PO; -QUET1TAB9 PO; -RISP0.5T21 PO; -SERO1TAB PO; -TOPI100T9 PO; -TRAZO50TA PO; -VENL75CA2 PO; -VENL75TA2 PO; -ZOLM5TAB SL
[2017-05-17] MEDS ORDERED: CLAR10CA3 PO (14:30)
[2017-05-17] MEDS ORDERED: VENL75TA2 PO (14:30)
[2017-05-17] MEDS ORDERED: TRAZO50TA PO (14:30)
[2017-05-17] MEDS ORDERED: SERO1TAB PO (14:30)
[2017-05-17] MEDS ORDERED: BUPR15TA PO (14:30)
[2017-05-17] MEDS ORDERED: ORTHTAB15 PO (16:00)
[2017-05-17] MEDS ORDERED: VENL75CA2 PO (16:00)
[2017-05-17] MEDS ORDERED: BUPR300T34 PO (16:00)
[2017-05-17] MEDS ORDERED: CLAR1TAB2 PO (16:00)
[2017-05-17] MEDS ORDERED: TOPI100T9 PO (16:00)
[2017-05-17 16:18] LABS: MEAN CORPUSCULAR HEMOGLOBIN 33.2 pg (27.0-33.0); MEAN CORPUSCULAR HGB CONC 34.7 g/dl (32.0-36.5); MEAN CORPUSCULAR VOLUME 95.6 fl (80.0-96.0); RED CELL DISTRIBUTION WIDTH 13.2 % (11.5-14.5); WHITE BLOOD COUNT 3.5 K/mm3 (4.0-10.0)
[2017-05-17 16:27] LABS: CONTROL LINE HCG INT CTR LINE PRESENT
[2017-05-17 16:43] LABS: ALBUMIN 3.6 GM/DL (3.2-5.2); ALBUMIN/GLOBULIN RATIO 1.03 (1.00-1.93); ALKALINE PHOSPHATASE 76 U/L (45-117); ALT/SGPT 20 U/L (12-78); ANION GAP 7 MEQ/L (8-16); AST/SGOT 13 U/L (15-37); BILIRUBIN,DIRECT 0.1 MG/DL (0.0-0.2); BILIRUBIN,TOTAL 0.5 MG/DL (0.2-1.0); BLOOD UREA NITROGEN 11 MG/DL (7-18); CALCIUM LEVEL 8.9 MG/DL (8.5-10.1); CARBON DIOXIDE LEVEL 28 MEQ/L (21-32); CHLORIDE LEVEL 106 MEQ/L (98-107); CREATININE FOR GFR 0.92 MG/DL (0.55-1.02); GLOMERULAR FILTRATION RATE > 60.0 (>60); GLUCOSE, FASTING 85 MG/DL (70-105); POTASSIUM SERUM 4.2 MEQ/L (3.5-5.1); SODIUM LEVEL 141 MEQ/L (136-145); TOTAL PROTEIN 7.1 GM/DL (6.4-8.2)
[2017-05-17 17:53] LABS: METHADONE URINE NEGATIVE (NEGATIVE)
[2017-05-17] MEDS ORDERED: MOM 30ML SUSPENSION UDC PO PRN (19:00)
[2017-05-17] MEDS ORDERED: ACETAMINOPHEN TAB 650MG DOSE (2X325MG) PO PRN (19:00)
[2017-05-17] MEDS ORDERED: traZODone 50 MG TAB PO PRN (19:00)
[2017-05-17] MEDS ORDERED: MAALOX 30 ML SUSP *UDC PO PRN (19:00)
[2017-05-17 21:15] VITALS: BP 130/80
[2017-05-17] MEDS ORDERED: LORATADINE 10 MG TAB PO PRN (23:45)
[2017-05-18 06:34] VITALS: BP 118/60
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
[2017-05-18] MEDS ORDERED: QUEtiapine FUMARATE 100 MG TAB PO SCH (09:00)
[2017-05-18] MEDS ORDERED: VENLAFAXINE **XR** 75MG CAPSULE PO SCH (09:00)
[2017-05-18] MEDS ORDERED: buPROPion **XL** TABLET 150MG (WELLBUTRIN XL) PO SCH (09:00)
[2017-05-18] MEDS: TOPIRAMATE (TopAMAX) 100 MG TAB PO SCH (09:04)
--- NOTE | 2017-05-18 11:39 | REP ---
Chest x-ray: Two views. History: History of chest pain. Findings: The lungs are well inflated and clear. Pleural angles are sharp. Heart size is normal. No significant bony abnormality is seen. No change from comparison radiograph April 14, 2016. Impression: Negative chest x-ray. Signed by Joey Thornton MD 05/18/2017 01:43 P
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
[2017-05-18 18:00] VITALS: BP 92/50
[2017-05-18] MEDS ORDERED: traZODone 50 MG TAB PO SCH (21:00)
[2017-05-18] MEDS: traZODone 50 MG TAB PO SCH (22:00)
--- NOTE | 2017-05-18 23:28 | ECGEPIP ---
Stationary ECG Study [facility] Test Date: 2017-05-18 Pat Name: DAYNA VELARDE Department: Room: [place] [address] Gender: F [employer] Consultant: COLT : 1990 Requested By: Cinthia Farmer Order Number: [id number] Reading MD: Donovan Batista Measurements Intervals [place] Rate: 68 P: 55 SC: 117 QRS: 75 QRSD: 78 T: 72 QT: 398 QTc: 425 Interpretive Statements SINUS RHYTHM WITH SHORT SC INTERVAL POSSIBLE RIGHT VENTRICULAR CONDUCTION DELAY Electronically Signed On 05-18-2017 23:27:48 EDT by Donovan Batista
[2017-05-19 06:39] VITALS: BP 126/63
[2017-05-19] MEDS: TOPIRAMATE (TopAMAX) 100 MG TAB PO SCH (08:22)
[2017-05-19] MEDS: tiZANidine 4 MG TAB PO PRN ×2 (08:23→22:02)
[2017-05-19] MEDS: buPROPion **XL** TABLET 150MG (WELLBUTRIN XL) PO SCH (08:23)
[2017-05-19] MEDS: VENLAFAXINE **XR** 75MG CAPSULE PO SCH (08:23)
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
[2017-05-19] MEDS: traZODone 50 MG TAB PO SCH (22:00)
[2017-05-20 06:24] VITALS: BP 100/65
[2017-05-20] MEDS: VENLAFAXINE **XR** 75MG CAPSULE PO SCH (08:39)
[2017-05-20] MEDS: TOPIRAMATE (TopAMAX) 100 MG TAB PO SCH (08:39)
[2017-05-20] MEDS: buPROPion **XL** TABLET 150MG (WELLBUTRIN XL) PO SCH (08:39)
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
[2017-05-20 18:00] VITALS: BP 112/61
[2017-05-20] MEDS: PALIPERIDONE 3 MG ER TAB (INVEGA) PO SCH (22:22)
[2017-05-20] MEDS: traZODone 50 MG TAB PO SCH (22:23)
[2017-05-20] MEDS: tiZANidine 4 MG TAB PO PRN (22:24)
[2017-05-21] MEDS: buPROPion 75 MG TAB PO SCH (08:20)
[2017-05-21] MEDS: TOPIRAMATE (TopAMAX) 100 MG TAB PO SCH (08:20)
[2017-05-21] MEDS: VENLAFAXINE **XR** 75MG CAPSULE PO SCH (08:20)
[2017-05-21] MEDS ORDERED: ORTHO TRI CYCLEN LO PO SCH (09:00)
--- NOTE | 2017-05-21 16:55 | MHIPNPDOC ---
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 Patient was seen and evaluated. She reported that she here for thoughts of cutting herself. Patient has minimum eye contact throughout the interview and she was also tearful. 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 She talked about her previous suicide attempt in May 2016. She tried to overdose on the pills and also reported that he was not cutting. She would have talked about overdosing on the pills so that she can 'end pain'. She continued to report some suicidal ideations, which are fading away. VITAL SIGNS: See below. CURRENT MEDICATIONS: See below. MENTAL STATUS EXAMINATION: General appearance: Patient is a 26-year old female, dressed in personal clothes , alert, cooperative with fair eye contact Speech: Soft spoken, normal in rate, rhythm, volume and amount Thought processes: Intact. Thought content: Coherent. Abstract reasoning and computation: Fair. Description of associations: Good Description of abnormal or psychotic thoughts: Patient admits that she has been having auditory hallucinations for some time. She describes the voices mostly as being her own voice fights with what she has to do. She denies suicidal thoughts , denies homicidal thoughts Judgment: Poor. Insight: Poor Orientation: Oriented 3. Recent and remote memory: Intact. Attention span and concentration: Fair. Fund of knowledge: Fair. Mood: "I'm feeling better" Affect: Angry/depressed/anxious DIAGNOSES: 1. PTSD 2. Borderline personality disorder ASSESSMENT: Improving mood and fading away. Suicidal thoughts MANAGEMENT PLAN: Continue current treatment TIME SPENT:. 15 minutes. Vital Signs Vital Signs Date Time Temp Pulse Resp B/P (MAP) Pulse Ox O2 Delivery O2 Flow Rate FiO2 05/21/17 08:45 Room Air 05/20/17 18:00 98.2 93 16 112/61 (78) 05/17/17 21:15 98 Current Medications Current Medications Acetaminophen (Tylenol Tab) 650 mg Q6HP PRN PO HEADACHE or DISCOMFORT; Start at 19:00; Stop 06/16/17 at 18:59 Al Hydrox/Mg Hydrox/Simethicone (Mylanta) 30 ml Q4HP PRN PO HEARTBURN/ INDIGESTION; Start 05/17/17 at 19:00; Stop 06/16/17 at 18:59 Bupropion HCl (Wellbutrin Xl) 150 mg DAILY PO Last administered on 05/20/17 08: 39; Start 05/19/17 at 09:00; Stop 05/20/17 at 14:03; Status DC Bupropion HCl (Wellbutrin Xl) 300 mg DAILY PO Last administered on 05/18/17 09 :04; Start 05/18/17 at 09:00; Stop 05/18/17 at 14:17; Status DC Bupropion HCl (Wellbutrin) 75 mg DAILY PO Last administered on 05/21/17 08:20; Start 05/21/17 at 09:00; Stop 06/20/17 at 08:59 Home Med (Med Rec Complete!) ASDIRECTED XX ; Start 05/17/17 at 16:15; Stop at 16:15; Status DC Loratadine (Claritin) 10 mg DAILYPRN PRN PO ALLERGY; Start 05/17/17 at 23:45; Stop 06/16/17 at 23:44 Magnesium Hydroxide (Milk Of Magnesia) 30 ml DAILYPRN PRN PO CONSTIPATION; Start 05/17/17 at 19:00; Stop 06/16/17 at 18:59 Miscellaneous (Unresolved Patient Own Med Order) SEE LABEL COMMENTS UNRESOLVED XX ; Start 05/18/17 at 00:01; Stop 06/17/17 at 00:00 Paliperidone (Invega) 3 mg QHS PO Last administered on 05/20/17 22:22; Start at 21:00; Stop 06/19/17 at 20:59 Patient Own Medication (Patient'S Own Med) 1 ea DAILY PO ; Start 05/21/17 at 09: 00; Stop 06/20/17 at 08:59; Status Future Hold Quetiapine Fumarate (SEROquel) 100 mg DAILY PO Last administered on 05/18/17 09:04; Start 05/18/17 at 09:00; Stop 05/18/17 at 11:44; Status DC Tizanidine HCl (Zanaflex) 2 mg Q6HP PRN PO SPASMS Last administered on 22:24; Start 05/17/17 at 23:45; Stop 06/16/17 at 23:44 Topiramate (TopAMAX) 100 mg DAILY PO Last administered on 05/21/17 08:20; Start 05/18/17 at 09:00; Stop 06/17/17 at 08:59 Trazodone HCl (Desyrel) 50 mg QHSP PRN PO INSOMNIA; Start 05/17/17 at 19:00; Stop 05/17/17 at 23:45; Status DC Trazodone HCl (Desyrel) 100 mg QHS PO Last administered on 05/20/17 22:23; Start 05/18/17 at 21:00; Stop 06/17/17 at 20:59 Trazodone HCl (Desyrel) 150 mg QHS PO ; Start 05/18/17 at 21:00; Stop 05/18/17 at 21:00; Status DC Venlafaxine HCl (Effexor Xr) 150 mg DAILY PO Last administered on 05/21/17 08:20; Start 05/19/17 at 09:00; Stop 06/18/17 at 08:59 Venlafaxine HCl (Effexor Xr) 225 mg DAILY PO Last administered on 09:04; Start 05/18/17 at 09:00; Stop 05/18/17 at 14:17; Status DC Allergies Coded Allergies: No Known Allergies (Unverified , 06/08/16) FAITH ORTIZ MD May 21, 2017 16:55
[2017-05-21 18:00] VITALS: BP 119/60
[2017-05-21] MEDS: traZODone 50 MG TAB PO SCH (22:27)
[2017-05-21] MEDS: PALIPERIDONE 3 MG ER TAB (INVEGA) PO SCH (22:27)
[2017-05-21] MEDS: tiZANidine 4 MG TAB PO PRN (22:28)
[2017-05-22 06:25] VITALS: BP 113/61
[2017-05-22] MEDS: VENLAFAXINE **XR** 75MG CAPSULE PO SCH (08:53)
[2017-05-22] MEDS: TOPIRAMATE (TopAMAX) 100 MG TAB PO SCH (08:53)
[2017-05-22] MEDS: buPROPion 75 MG TAB PO SCH (08:53)
[2017-05-22 18:00] VITALS: BP 104/57
[2017-05-22] MEDS: PALIPERIDONE 3 MG ER TAB (INVEGA) PO SCH (23:08)
[2017-05-22] MEDS: traZODone 50 MG TAB PO SCH (23:08)
[2017-05-23 06:56] VITALS: BP 122/60
[2017-05-23] MEDS: TOPIRAMATE (TopAMAX) 100 MG TAB PO SCH (09:03)
[2017-05-23] MEDS: VENLAFAXINE **XR** 75MG CAPSULE PO SCH (09:03)
[2017-05-23] MEDS: buPROPion 75 MG TAB PO SCH (09:03)
[2017-05-23 18:00] VITALS: BP 117/72
[2017-05-23] MEDS: traZODone 50 MG TAB PO SCH (22:39)
[2017-05-23] MEDS: PALIPERIDONE 3 MG ER TAB (INVEGA) PO SCH (22:39)
[2017-05-23] MEDS: tiZANidine 4 MG TAB PO PRN (22:40)
[2017-05-24 06:17] VITALS: BP 112/64
[2017-05-24] MEDS: buPROPion 75 MG TAB PO SCH (09:28)
[2017-05-24] MEDS: VENLAFAXINE **XR** 75MG CAPSULE PO SCH (09:28)
[2017-05-24] MEDS: TOPIRAMATE (TopAMAX) 100 MG TAB PO SCH (09:28)
[2017-05-24 18:00] VITALS: BP 120/82
--- NOTE | 2017-05-24 20:03 | MHIPNPDOC ---
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 Patient was seen and evaluated. She reported that she doesn't have suicidal thoughts, she feels her mood has improved. Today she denies auditory and visual hallucinations, she says when she hears a voice, is her own voice in her head, not anybody's else's voice. She says she's sleeping better, her appetite has improved, she has been able to interact with other patients and this has been useful for her. She states attending groups has helped her and she says she agrees going to [facility] for longer treatment. VITAL SIGNS: See below. CURRENT MEDICATIONS: See below. MENTAL STATUS EXAMINATION: General appearance: Patient is a 26-year old female, dressed in personal clothes , alert, cooperative with fair eye contact Speech: Soft spoken, normal in rate and volume. Thought processes: Intact, logical, linear Thought content: Coherent. Abstract reasoning and computation: Fair. Description of associations: Good Description of abnormal or psychotic thoughts: Patient denies having auditory hallucinations. She describes the voices mostly as being her own voice fights with what she has to do. She denies suicidal thoughts , denies homicidal thoughts Judgment: Poor. Insight: Poor Orientation: Oriented 3. Recent and remote memory: Intact. Attention span and concentration: Fair. Fund of knowledge: Fair. Mood: "I'm better" Affect: Euthymic, congruent to mood DIAGNOSES: 1. PTSD 2. Borderline personality disorder ASSESSMENT: Improving, although her insight is still poor. She denies SI. MANAGEMENT PLAN: Continue current treatment. Will be transferred to [facility] during this week TIME SPENT:. 15 minutes. TIME SPENT: 30 minutes. Vital Signs Vital Signs Date Time Temp Pulse Resp B/P (MAP) Pulse Ox O2 Delivery O2 Flow Rate FiO2 05/24/17 06:17 99.4 97 18 112/64 (80) Room Air Current Medications Current Medications Acetaminophen (Tylenol Tab) 650 mg Q6HP PRN PO HEADACHE or DISCOMFORT; Start at 19:00; Stop 06/16/17 at 18:59 Al Hydrox/Mg Hydrox/Simethicone (Mylanta) 30 ml Q4HP PRN PO HEARTBURN/ INDIGESTION; Start 05/17/17 at 19:00; Stop 06/16/17 at 18:59 Bupropion HCl (Wellbutrin Xl) 150 mg DAILY PO Last administered on 05/20/17 08: 39; Start 05/19/17 at 09:00; Stop 05/20/17 at 14:03; Status DC Bupropion HCl (Wellbutrin Xl) 300 mg DAILY PO Last administered on 05/18/17 09 :04; Start 05/18/17 at 09:00; Stop 05/18/17 at 14:17; Status DC Bupropion HCl (Wellbutrin) 75 mg DAILY PO Last administered on 05/24/17 09:28; Start 05/21/17 at 09:00; Stop 05/24/17 at 15:19; Status DC Home Med (Med Rec Complete!) ASDIRECTED XX ; Start 05/17/17 at 16:15; Stop at 16:15; Status DC Loratadine (Claritin) 10 mg DAILYPRN PRN PO ALLERGY; Start 05/17/17 at 23:45; Stop 06/16/17 at 23:44 Magnesium Hydroxide (Milk Of Magnesia) 30 ml DAILYPRN PRN PO CONSTIPATION; Start 05/17/17 at 19:00; Stop 06/16/17 at 18:59 Miscellaneous (Unresolved Patient Own Med Order) SEE LABEL COMMENTS UNRESOLVED XX ; Start 05/18/17 at 00:01; Stop 06/17/17 at 00:00 Paliperidone (Invega) 3 mg QHS PO Last administered on 05/23/17 22:39; Start at 21:00; Stop 05/24/17 at 15:20; Status DC Patient Own Medication (Patient'S Own Med) 1 ea DAILY PO ; Start 05/21/17 at 09: 00; Stop 06/20/17 at 08:59; Status Future Hold Quetiapine Fumarate (SEROquel) 100 mg DAILY PO Last administered on 05/18/17 09:04; Start 05/18/17 at 09:00; Stop 05/18/17 at 11:44; Status DC Risperidone (RisperDAL) 0.5 mg BID PO ; Start 05/24/17 at 21:00; Stop 06/23/17 at 20:59 Tizanidine HCl (Zanaflex) 2 mg Q6HP PRN PO SPASMS Last administered on 22:40; Start 05/17/17 at 23:45; Stop 06/16/17 at 23:44 Topiramate (TopAMAX) 100 mg DAILY PO Last administered on 05/24/17 09:28; Start 05/18/17 at 09:00; Stop 06/17/17 at 08:59 Trazodone HCl (Desyrel) 50 mg QHSP PRN PO INSOMNIA; Start 05/17/17 at 19:00; Stop 05/17/17 at 23:45; Status DC Trazodone HCl (Desyrel) 100 mg QHS PO Last administered on 05/23/17 22:39; Start 05/18/17 at 21:00; Stop 06/17/17 at 20:59 Trazodone HCl (Desyrel) 150 mg QHS PO ; Start 05/18/17 at 21:00; Stop 05/18/17 at 21:00; Status DC Venlafaxine HCl (Effexor Xr) 150 mg DAILY PO Last administered on 05/24/17 09:28; Start 05/19/17 at 09:00; Stop 06/18/17 at 08:59 Venlafaxine HCl (Effexor Xr) 225 mg DAILY PO Last administered on 09:04; Start 05/18/17 at 09:00; Stop 05/18/17 at 14:17; Status DC Allergies Coded Allergies: No Known Allergies (Unverified , 06/08/16) LEBRON WALLIS MD May 24, 2017 20:03
[2017-05-24] MEDS: risperiDONE 0.5 MG TAB PO SCH (23:14)
[2017-05-24] MEDS: traZODone 50 MG TAB PO SCH (23:14)
[2017-05-25 06:48] VITALS: BP 105/60
[2017-05-25] MEDS: VENLAFAXINE **XR** 75MG CAPSULE PO SCH (08:59)
[2017-05-25] MEDS: TOPIRAMATE (TopAMAX) 100 MG TAB PO SCH (08:59)
[2017-05-25] MEDS: risperiDONE 0.5 MG TAB PO SCH ×2 (08:59→20:54)
--- NOTE | 2017-05-25 16:34 | MHIPNPDOC ---
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 Upon evaluation, patient was seeing sleepy and she reported that she just had woke up, she says she was trying to catch up some sleep, she says she was feeling okay, she had been very DC the previous day and probably that is why he felt tired. She says she has been attending groups and has been very sociable in the unit during the previous day. She denied suicidal/ homicidal ideation or self-injurious behavior. VITAL SIGNS: See below. CURRENT MEDICATIONS: See below. MENTAL STATUS EXAMINATION: General appearance: Patient is a 26-year old female, dressed in personal close, , disheveled, sleepy with fair eye contact, cooperative Speech: Soft spoken, sometimes is difficult to understand what she says. Thought processes: Intact Thought content: Coherent. Abstract reasoning and computation: Fair. Description of associations: Good Description of abnormal or psychotic thoughts: Denies SI/HI. Denies auditory and visual hallucinations, denies thought delusions. Judgment: Limited Insight: Limited Orientation: Oriented 3. Recent and remote memory: Intact. Attention span and concentration: Fair. Fund of knowledge: Fair. Mood: "I'm tired because I was too active yesterday, but I'm okay" Affect: Euthymic, congruent to mood DIAGNOSES: 1. PTSD 2. Borderline personality disorder ASSESSMENT: Patient has improved and responded to treatment. She still needs longer treatment for her long history of trauma and personality disorder. Patient's judgment and insight are improving but she still has a long way to go , and she has to recolonize she has defiant attitudes that have caused her trouble with in the [employer]. She needs to learn how to control her impulses, learned several coping skills. MANAGEMENT PLAN: Continue with current treatment. Patient is being transferred to [facility], but we don't have a date or time. We will follow-up. TIME SPENT: 30 minutes. Vital Signs Vital Signs Date Time Temp Pulse Resp B/P (MAP) Pulse Ox O2 Delivery O2 Flow Rate FiO2 05/25/17 06:48 99.6 109 16 105/60 (75) Room Air Current Medications Current Medications Acetaminophen (Tylenol Tab) 650 mg Q6HP PRN PO HEADACHE or DISCOMFORT; Start at 19:00; Stop 06/16/17 at 18:59 Al Hydrox/Mg Hydrox/Simethicone (Mylanta) 30 ml Q4HP PRN PO HEARTBURN/ INDIGESTION; Start 05/17/17 at 19:00; Stop 06/16/17 at 18:59 Bupropion HCl (Wellbutrin Xl) 150 mg DAILY PO Last administered on 05/20/17 08: 39; Start 05/19/17 at 09:00; Stop 05/20/17 at 14:03; Status DC Bupropion HCl (Wellbutrin Xl) 300 mg DAILY PO Last administered on 05/18/17 09 :04; Start 05/18/17 at 09:00; Stop 05/18/17 at 14:17; Status DC Bupropion HCl (Wellbutrin) 75 mg DAILY PO Last administered on 05/24/17 09:28; Start 05/21/17 at 09:00; Stop 05/24/17 at 15:19; Status DC Home Med (Med Rec Complete!) ASDIRECTED XX ; Start 05/17/17 at 16:15; Stop at 16:15; Status DC Loratadine (Claritin) 10 mg DAILYPRN PRN PO ALLERGY; Start 05/17/17 at 23:45; Stop 06/16/17 at 23:44 Magnesium Hydroxide (Milk Of Magnesia) 30 ml DAILYPRN PRN PO CONSTIPATION; Start 05/17/17 at 19:00; Stop 06/16/17 at 18:59 Miscellaneous (Unresolved Patient Own Med Order) SEE LABEL COMMENTS UNRESOLVED XX ; Start 05/18/17 at 00:01; Stop 06/17/17 at 00:00 Paliperidone (Invega) 3 mg QHS PO Last administered on 05/23/17 22:39; Start at 21:00; Stop 05/24/17 at 15:20; Status DC Patient Own Medication (Patient'S Own Med) 1 ea DAILY PO ; Start 05/21/17 at 09: 00; Stop 06/20/17 at 08:59; Status Future Hold Quetiapine Fumarate (SEROquel) 100 mg DAILY PO Last administered on 05/18/17 09:04; Start 05/18/17 at 09:00; Stop 05/18/17 at 11:44; Status DC Risperidone (RisperDAL) 0.5 mg BID PO Last administered on 05/25/17 08:59; Start 05/24/17 at 21:00; Stop 06/23/17 at 20:59 Tizanidine HCl (Zanaflex) 2 mg Q6HP PRN PO SPASMS Last administered on 22:40; Start 05/17/17 at 23:45; Stop 06/16/17 at 23:44 Topiramate (TopAMAX) 100 mg DAILY PO Last administered on 05/25/17 08:59; Start 05/18/17 at 09:00; Stop 06/17/17 at 08:59 Trazodone HCl (Desyrel) 50 mg QHSP PRN PO INSOMNIA; Start 05/17/17 at 19:00; Stop 05/17/17 at 23:45; Status DC Trazodone HCl (Desyrel) 100 mg QHS PO Last administered on 05/24/17 23:14; Start 05/18/17 at 21:00; Stop 06/17/17 at 20:59 Trazodone HCl (Desyrel) 150 mg QHS PO ; Start 05/18/17 at 21:00; Stop 05/18/17 at 21:00; Status DC Venlafaxine HCl (Effexor Xr) 150 mg DAILY PO Last administered on 05/25/17 08:59; Start 05/19/17 at 09:00; Stop 06/18/17 at 08:59 Venlafaxine HCl (Effexor Xr) 225 mg DAILY PO Last administered on 09:04; Start 05/18/17 at 09:00; Stop 05/18/17 at 14:17; Status DC Allergies Coded Allergies: No Known Allergies (Unverified , 06/08/16) LEBRON WALLIS MD May 25, 2017 16:34
[2017-05-25 18:00] VITALS: BP 113/64
[2017-05-25] MEDS: tiZANidine 4 MG TAB PO PRN (20:54)
[2017-05-25] MEDS: traZODone 50 MG TAB PO SCH (20:54)
[2017-05-26 06:50] VITALS: BP 120/69
[2017-05-26] MEDS: VENLAFAXINE **XR** 75MG CAPSULE PO SCH (08:32)
[2017-05-26] MEDS: TOPIRAMATE (TopAMAX) 100 MG TAB PO SCH (08:32)
[2017-05-26] MEDS: risperiDONE 0.5 MG TAB PO SCH ×3 (08:32→21:50)
[2017-05-26 18:00] VITALS: BP 118/77
--- NOTE | 2017-05-26 21:34 | MHIPNPDOC ---
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 She had expressed the need to make an appointment with her dentist because the braces had to be removed next Tuesday. She also has requested going to the [facility] and stay there for 2-3 days before going to [facility] and then, she requested to stay at the [facility] because staff has been nice to her, now she says she doesn't like the idea of going to [facility], but she has accepted it because she knows it will help her improve her mental health. VITAL SIGNS: See below. CURRENT MEDICATIONS: See below. MENTAL STATUS EXAMINATION: General appearance: Dressed in personal clothes, angry/tearful/depressed. She was tearful, with poor eye contact. Speech: Soft spoken, sometimes is difficult to understand what she says. Thought processes: Intact, rational Thought content: Coherent, goal directed Abstract reasoning and computation: Fair. Description of associations: Good Description of abnormal or psychotic thoughts: Denies SI/HI. Denies auditory and visual hallucinations, denies thought delusions. Judgment: Fair Insight: Poor Orientation: Oriented 3. Recent and remote memory: Intact. Attention span and concentration: Fair. Fund of knowledge: Fair. Mood: "I'm so angry....." Affect: Angry/depressed DIAGNOSES: 1. PTSD 2. Borderline personality disorder ASSESSMENT: Patient will be going to her dentist tomorrow to have her braces removed. She will be escorted by staff from [place] and will keep her company all the time. Today, the Risperdal was increased to Risperdal 0.5 mgs PO TID and her venlafaxine was increased to 225 mgs. Will f/u MANAGEMENT PLAN: Continue with current treatment. Patient is being transferred to [facility], but we don't have a date or time. We will follow-up. TIME SPENT: 30 minutes. Vital Signs Vital Signs Date Time Temp Pulse Resp B/P (MAP) Pulse Ox O2 Delivery O2 Flow Rate FiO2 05/26/17 18:00 98.7 96 18 118/77 (91) 05/26/17 09:01 Room Air Current Medications Current Medications Acetaminophen (Tylenol Tab) 650 mg Q6HP PRN PO HEADACHE or DISCOMFORT; Start at 19:00; Stop 06/16/17 at 18:59 Al Hydrox/Mg Hydrox/Simethicone (Mylanta) 30 ml Q4HP PRN PO HEARTBURN/ INDIGESTION; Start 05/17/17 at 19:00; Stop 06/16/17 at 18:59 Bupropion HCl (Wellbutrin Xl) 150 mg DAILY PO Last administered on 05/20/17 08: 39; Start 05/19/17 at 09:00; Stop 05/20/17 at 14:03; Status DC Bupropion HCl (Wellbutrin Xl) 300 mg DAILY PO Last administered on 05/18/17 09 :04; Start 05/18/17 at 09:00; Stop 05/18/17 at 14:17; Status DC Bupropion HCl (Wellbutrin) 75 mg DAILY PO Last administered on 05/24/17 09:28; Start 05/21/17 at 09:00; Stop 05/24/17 at 15:19; Status DC Home Med (Med Rec Complete!) ASDIRECTED XX ; Start 05/17/17 at 16:15; Stop at 16:15; Status DC Loratadine (Claritin) 10 mg DAILYPRN PRN PO ALLERGY; Start 05/17/17 at 23:45; Stop 06/16/17 at 23:44 Magnesium Hydroxide (Milk Of Magnesia) 30 ml DAILYPRN PRN PO CONSTIPATION; Start 05/17/17 at 19:00; Stop 06/16/17 at 18:59 Miscellaneous (Unresolved Patient Own Med Order) SEE LABEL COMMENTS UNRESOLVED XX ; Start 05/18/17 at 00:01; Stop 06/17/17 at 00:00 Paliperidone (Invega) 3 mg QHS PO Last administered on 05/23/17 22:39; Start at 21:00; Stop 05/24/17 at 15:20; Status DC Patient Own Medication (Patient'S Own Med) 1 ea DAILY PO ; Start 05/21/17 at 09: 00; Stop 06/20/17 at 08:59; Status Future Hold Quetiapine Fumarate (SEROquel) 100 mg DAILY PO Last administered on 05/18/17 09:04; Start 05/18/17 at 09:00; Stop 05/18/17 at 11:44; Status DC Risperidone (RisperDAL) 0.5 mg BID PO Last administered on 05/26/17 08:32; Start 05/24/17 at 21:00; Stop 05/26/17 at 11:20; Status DC Risperidone (RisperDAL) 0.5 mg TID PO Last administered on 05/26/17 15:51; Start 05/26/17 at 16:00; Stop 06/23/17 at 20:59 Tizanidine HCl (Zanaflex) 2 mg Q6HP PRN PO SPASMS Last administered on 20:54; Start 05/17/17 at 23:45; Stop 06/16/17 at 23:44 Topiramate (TopAMAX) 100 mg DAILY PO Last administered on 05/26/17 08:32; Start 05/18/17 at 09:00; Stop 06/17/17 at 08:59 Trazodone HCl (Desyrel) 50 mg QHSP PRN PO INSOMNIA; Start 05/17/17 at 19:00; Stop 05/17/17 at 23:45; Status DC Trazodone HCl (Desyrel) 100 mg QHS PO Last administered on 05/25/17 20:54; Start 05/18/17 at 21:00; Stop 06/17/17 at 20:59 Trazodone HCl (Desyrel) 150 mg QHS PO ; Start 05/18/17 at 21:00; Stop 05/18/17 at 21:00; Status DC Venlafaxine HCl (Effexor Xr) 150 mg DAILY PO Last administered on 05/26/17 08:32; Start 05/19/17 at 09:00; Stop 05/26/17 at 11:18; Status DC Venlafaxine HCl (Effexor Xr) 225 mg DAILY PO Last administered on t 09:04; Start 05/18/17 at 09:00; Stop 05/18/17 at 14:17; Status DC Venlafaxine HCl (Effexor Xr) 225 mg DAILY PO ; Start 05/27/17 at 09:00; Stop 06/26/17 at 08:59 Allergies Coded Allergies: No Known Allergies (Unverified , 06/08/16) LEBRON WALLIS MD May 26, 2017 21:34
[2017-05-26] MEDS: traZODone 50 MG TAB PO SCH (22:14)
[2017-05-26] MEDS: tiZANidine 4 MG TAB PO PRN (22:16)
[2017-05-27 06:00] VITALS: BP 119/64
[2017-05-27] MEDS: VENLAFAXINE **XR** 75MG CAPSULE PO SCH (09:39)
[2017-05-27] MEDS: TOPIRAMATE (TopAMAX) 100 MG TAB PO SCH (09:39)
[2017-05-27] MEDS: risperiDONE 0.5 MG TAB PO SCH ×3 (09:39→22:05)
[2017-05-27] MEDS: tiZANidine 4 MG TAB PO PRN ×2 (16:16→22:06)
--- NOTE | 2017-05-27 17:48 | MHIPNPDOC ---
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 She was assessed after she came back from her dentist appointment where she went to have her braces removed. Patient Called previously the inpatient mental health unit because she was running a little bit late. VITAL SIGNS: See below. CURRENT MEDICATIONS: See below. MENTAL STATUS EXAMINATION: General appearance: Dressed in personal clothes, anxious, with fair eye contact , cooperative. Speech: Coherent, normal in rate but continues to be very soft spoken Thought processes: Rational, coherent Thought content: Coherent, goal directed Abstract reasoning and computation: Fair. Description of associations: Good Description of abnormal or psychotic thoughts: Denies SI/HI. Denies auditory and visual hallucinations, denies thought delusions. Judgment: Fair Insight: Improving Orientation: Oriented 3. Recent and remote memory: Intact. Attention span and concentration: Fair. Fund of knowledge: Fair. Mood: "I I don't feel depressed , I'm anxious" Affect: Anxious DIAGNOSES: 1. PTSD 2. Borderline personality disorder ASSESSMENT: Patient came back from her dentist appointment in a fairly reasonable mood. She has to be escorted to her dentist appointment by one of the persons with whom she has been having problems at [place]. She was told before she left, to try to keep herself calm and composed, apply her coping skills, take deep breaths, count, before giving about response or having an angry outburst. Patient seems to be doing better, but antidepressant will be increased. MANAGEMENT PLAN: Venlafaxine will be increased to 300 mg. She is pending transfer to [facility] on May 30 TIME SPENT: 30 minutes. Vital Signs Vital Signs Date Time Temp Pulse Resp B/P (MAP) Pulse Ox O2 Delivery O2 Flow Rate FiO2 05/27/17 06:00 99.1 78 18 119/64 (82) 05/26/17 09:01 Room Air Current Medications Current Medications Acetaminophen (Tylenol Tab) 650 mg Q6HP PRN PO HEADACHE or DISCOMFORT; Start at 19:00; Stop 06/16/17 at 18:59 Al Hydrox/Mg Hydrox/Simethicone (Mylanta) 30 ml Q4HP PRN PO HEARTBURN/ INDIGESTION; Start 05/17/17 at 19:00; Stop 06/16/17 at 18:59 Bupropion HCl (Wellbutrin Xl) 150 mg DAILY PO Last administered on 05/20/17 08: 39; Start 05/19/17 at 09:00; Stop 05/20/17 at 14:03; Status DC Bupropion HCl (Wellbutrin Xl) 300 mg DAILY PO Last administered on 05/18/17 09 :04; Start 05/18/17 at 09:00; Stop 05/18/17 at 14:17; Status DC Bupropion HCl (Wellbutrin) 75 mg DAILY PO Last administered on 05/24/17 09:28; Start 05/21/17 at 09:00; Stop 05/24/17 at 15:19; Status DC Home Med (Med Rec Complete!) ASDIRECTED XX ; Start 05/17/17 at 16:15; Stop at 16:15; Status DC Loratadine (Claritin) 10 mg DAILYPRN PRN PO ALLERGY; Start 05/17/17 at 23:45; Stop 06/16/17 at 23:44 Magnesium Hydroxide (Milk Of Magnesia) 30 ml DAILYPRN PRN PO CONSTIPATION; Start 05/17/17 at 19:00; Stop 06/16/17 at 18:59 Miscellaneous (Unresolved Patient Own Med Order) SEE LABEL COMMENTS UNRESOLVED XX ; Start 05/18/17 at 00:01; Stop 06/17/17 at 00:00 Paliperidone (Invega) 3 mg QHS PO Last administered on 05/23/17 22:39; Start at 21:00; Stop 05/24/17 at 15:20; Status DC Patient Own Medication (Patient'S Own Med) 1 ea DAILY PO ; Start 05/21/17 at 09: 00; Stop 06/20/17 at 08:59; Status Future Hold Quetiapine Fumarate (SEROquel) 100 mg DAILY PO Last administered on 05/18/17 09:04; Start 05/18/17 at 09:00; Stop 05/18/17 at 11:44; Status DC Risperidone (RisperDAL) 0.5 mg BID PO Last administered on 05/26/17 08:32; Start 05/24/17 at 21:00; Stop 05/26/17 at 11:20; Status DC Risperidone (RisperDAL) 0.5 mg TID PO Last administered on 05/27/17 16:14; Start 05/26/17 at 16:00; Stop 06/23/17 at 20:59 Tizanidine HCl (Zanaflex) 2 mg Q6HP PRN PO SPASMS Last administered on 16:16; Start 05/17/17 at 23:45; Stop 06/16/17 at 23:44 Topiramate (TopAMAX) 100 mg DAILY PO Last administered on 05/27/17 09:39; Start 05/18/17 at 09:00; Stop 06/17/17 at 08:59 Trazodone HCl (Desyrel) 50 mg QHSP PRN PO INSOMNIA; Start 05/17/17 at 19:00; Stop 05/17/17 at 23:45; Status DC Trazodone HCl (Desyrel) 100 mg QHS PO Last administered on 05/26/17 22:14; Start 05/18/17 at 21:00; Stop 06/17/17 at 20:59 Trazodone HCl (Desyrel) 150 mg QHS PO ; Start 05/18/17 at 21:00; Stop 05/18/17 at 21:00; Status DC Venlafaxine HCl (Effexor Xr) 150 mg DAILY PO Last administered on 05/26/17 08:32; Start 05/19/17 at 09:00; Stop 05/26/17 at 11:18; Status DC Venlafaxine HCl (Effexor Xr) 225 mg DAILY PO Last administered on 09:04; Start 05/18/17 at 09:00; Stop 05/18/17 at 14:17; Status DC Venlafaxine HCl (Effexor Xr) 225 mg DAILY PO Last administered on 05/27/17 09:39; Start 05/27/17 at 09:00; Stop 06/26/17 at 08:59 Allergies Coded Allergies: No Known Allergies (Unverified , 06/08/16) LEBRON WALLIS MD May 27, 2017 17:48
[2017-05-27 18:00] VITALS: BP 100/65
[2017-05-27] MEDS: traZODone 50 MG TAB PO SCH (22:07)
[2017-05-28 06:49] VITALS: BP 133/66
[2017-05-28] MEDS: tiZANidine 4 MG TAB PO PRN ×2 (09:20→20:54)
[2017-05-28] MEDS: risperiDONE 0.5 MG TAB PO SCH ×3 (09:21→20:53)
[2017-05-28] MEDS: TOPIRAMATE (TopAMAX) 100 MG TAB PO SCH (09:21)
[2017-05-28] MEDS: VENLAFAXINE **XR** 75MG CAPSULE PO SCH (09:22)
[2017-05-28 18:14] VITALS: BP 112/60
[2017-05-28] MEDS: traZODone 50 MG TAB PO SCH (20:53)
[2017-05-29 06:46] VITALS: BP 122/73
[2017-05-29] MEDS: risperiDONE 0.5 MG TAB PO SCH ×3 (08:28→22:17)
[2017-05-29] MEDS: TOPIRAMATE (TopAMAX) 100 MG TAB PO SCH (08:28)
[2017-05-29] MEDS: VENLAFAXINE **XR** 75MG CAPSULE PO SCH (08:28)
[2017-05-29] MEDS: tiZANidine 4 MG TAB PO PRN ×2 (08:29→22:17)
[2017-05-29 18:13] VITALS: BP 119/76
[2017-05-29] MEDS ORDERED: RISP0.5T21 PO (20:36)
[2017-05-29] MEDS ORDERED: TRAZO50TA PO (20:36)
[2017-05-29] MEDS: traZODone 50 MG TAB PO SCH (22:16)
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
[2017-06-01 00:07] LABS: O-DESMETHYLVENLAFAXINE 151 ng/ml (.); QUETIAPINE LEVEL (SEROQUEL) 76 ng/ml (.); TRAZODONE LEVEL None Detected ug/mL (0.8-1.6)
[2017-07-19] MEDS ORDERED: ZOLM5TAB SL (12:06)
[2017-07-19] MEDS ORDERED: QUET1TAB9 PO (12:06)
[2017-07-19] MEDS ORDERED: QUET1TAB8 PO (12:06)
[2017-07-19] MEDS ORDERED: PROP10TA56 PO (12:06)
[2017-07-19] MEDS ORDERED: PRAZ5CAP PO (12:06)
[2017-07-19] MEDS ORDERED: COLA100C5 PO (12:06)
== END 2017-05-30 05:15 | disposition home or self-care (01) | DRG 882 ==
LOC: M ED 14:19 → M ED INP 18:46 → M PSY 21:48
PROVIDERS: ADMIT Psychiatry & Neurology Psychiatry; ATTEND Psychiatry & Neurology Psychiatry
DX: F43.10 Post-traumatic stress disorder, unspecified (principal); F60.3 Borderline personality disorder; Z62.810 Personal history of physical and sexual abuse in childhood; G47.00 Insomnia, unspecified; M54.2 Cervicalgia; M54.5 Low back pain; R51 Headache; Z79.899 Other long term (current) drug therapy

== ENCOUNTER → 2017-08-09 | Outpatient (REF) ==
[~2017-08-09] MED LIST changes: +BUPR15TA PO; +BUPR300T34 PO; +CLAR10CA3 PO; +CLAR1TAB2 PO; +COLA100C5 PO; +ORTHTAB15 PO; +PRAZ5CAP PO; +PROP10TA56 PO; +QUET1TAB8 PO; +QUET1TAB9 PO; +RISP0.5T21 PO; +SERO1TAB PO; +TOPI100T9 PO; +TRAZO50TA PO; +VENL75CA2 PO; +VENL75TA2 PO; +ZOLM5TAB SL
--- NOTE | 2017-08-09 13:49 | REP ---
Clinical: Pain and disability . Technique: Internal rotation, external rotation, and Y view right shoulder . Findings: No acute fracture or dislocation. The acromioclavicular and glenohumeral joints are intact. No periarticular calcifications or degenerative changes are appreciated. Sub acromial space is normal. Surrounding soft tissues are unremarkable. Impression: Normal right shoulder radiographs. Signed by Taqueria Valencia MD 08/09/2017 01:41 P
--- NOTE | 2017-08-09 13:59 | REP ---
Clinical: Pain and disability. Technique: AP, lateral, open mouth views of the cervical spine. Comparison: CT dated 07/19/2017. Findings: Alignment and subtle reversal of normal lordosis remains stable as compared to 07/19/2017. No acute fracture / compression injury or subluxation. No significant degenerative changes. Open mouth view demonstrates normal C1-C2 articulation and odontoid process. Spinous processes are intact. Prevertebral soft tissues are normal. Impression: Relatively stable as compared to CT dated 07/19/2017. Signed by Taqueria Valencia MD 08/09/2017 01:50 P
== END ==
LOC: M SMT 12:57
PROVIDERS: ATTEND Internal Medicine
DX: M50.30 Other cervical disc degeneration, unspecified cervical region (principal)

== ENCOUNTER → 2017-08-17 | Outpatient (CLI) | payer OTHER ==
[~2017-08-17] MED LIST changes: +BUPR300T34; +MILKSUS PO
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
== END ==
LOC: M PAIN 14:15
PROVIDERS: ATTEND Nurse Practitioner Family
DX: M79.1 Myalgia (principal); M54.2 Cervicalgia; Z87.891 Personal history of nicotine dependence; Z79.899 Other long term (current) drug therapy

== ENCOUNTER 2017-08-26 13:23 | Emergency (ER) | payer OTHER ==
[~2017-08-26] VITALS: Ht 160 cm; Wt 63.6 kg
[~2017-08-26 13:23] MED LIST changes: -BUPR300T34; -MILKSUS PO
[2017-08-26] MEDS ORDERED: BUPR300T34 (13:37)
[2017-08-26] MEDS ORDERED: NS 1,000 ML IV ONE (15:30)
[2017-08-26 15:50] LABS: BASO % 0.2 % (0.0-1.0); IMMATURE GRANULOCYTE % 0.2 % (0-0); LYMPH # 1.5 10^3/uL (1.5-6.5); LYMPH % 15.4 % (24.0-44.0); MEAN CORPUSCULAR HEMOGLOBIN 31.5 pg (27.0-33.0); MEAN CORPUSCULAR HGB CONC 33.4 g/dl (32.0-36.5); MEAN CORPUSCULAR VOLUME 94.1 fl (80.0-96.0); MONO # 0.5 10^3/uL (0.0-0.8); MONO % 5.2 % (0.0-5.0); NEUTROPHILS # 7.5 10^3/uL (1.8-7.7); PLATELET COUNT, AUTOMATED 264 10^3/uL (150-450); RED CELL DISTRIBUTION WIDTH 13.3 % (11.5-14.5); WHITE BLOOD COUNT 9.5 10^3/uL (4.0-10.0)
[2017-08-26 16:09] LABS: INR 0.99
[2017-08-26 16:11] LABS: ALBUMIN 3.7 GM/DL (3.2-5.2); ALBUMIN/GLOBULIN RATIO 0.84 (1.00-1.93); ALKALINE PHOSPHATASE 101 U/L (45-117); ALT/SGPT 19 U/L (12-78); ANION GAP 5 MEQ/L (8-16); AST/SGOT 16 U/L (7-37); BILIRUBIN,DIRECT < 0.1 MG/DL (0.0-0.2); BILIRUBIN,TOTAL 0.2 MG/DL (0.2-1.0); BLOOD UREA NITROGEN 14 MG/DL (7-18); CALCIUM LEVEL 8.4 MG/DL (8.5-10.1); CARBON DIOXIDE LEVEL 26 MEQ/L (21-32); CHLORIDE LEVEL 108 MEQ/L (98-107); CREATININE FOR GFR 0.75 MG/DL (0.55-1.02); GLOMERULAR FILTRATION RATE > 60.0 (>60); GLUCOSE, FASTING 87 MG/DL (70-105); POTASSIUM SERUM 3.5 MEQ/L (3.5-5.1); SODIUM LEVEL 139 MEQ/L (136-145); TOTAL PROTEIN 8.1 GM/DL (6.4-8.2)
[2017-08-26 17:11] LABS: CONTROL LINE UCG INT CTR LINE PRESENT
[2017-08-26 17:15] LABS: CALCIUM OXALATE CRYSTALS LARGE
[2017-08-26] MEDS ORDERED: MILKSUS PO ×2 (18:53→19:04)
[2017-08-26 19:02] VITALS: BP 145/78
== END 2017-08-26 19:05 | disposition home or self-care (01) ==
LOC: M ED 13:23
DX: K59.00 Constipation, unspecified (principal); G43.909 Migraine, unspecified, not intractable, without status migrainosus; G40.509 Epileptic seizures related to external causes, not intractable, without status epilepticus; Z87.440 Personal history of urinary (tract) infections; M54.9 Dorsalgia, unspecified; F41.9 Anxiety disorder, unspecified; F32.9 Major depressive disorder, single episode, unspecified; Z77.098 Contact with and (suspected) exposure to other hazardous, chiefly nonmedicinal, chemicals; Z79.899 Other long term (current) drug therapy

== ENCOUNTER → 2017-10-25 | Outpatient (CLI) | payer OTHER | LOC: M PAIN 15:15 | DX: M54.2 Cervicalgia (principal); M79.1 Myalgia; F32.9 Major depressive disorder, single episode, unspecified; G47.00 Insomnia, unspecified; F43.10 Post-traumatic stress disorder, unspecified; Z79.899 Other long term (current) drug therapy; Z87.891 Personal history of nicotine dependence; Z91.5 Personal history of self-harm | CPT/HCPCS: G0463 ==

== ENCOUNTER → 2017-11-23 | Outpatient (CLI) | payer OTHER ==
[~2017-11-23] MED LIST changes: -ADDE10CA3 PO; -ANBEEL TOP; +BUPIVACAINE HCL 0.25% 10 ML VIAL As Ordered; +BUPIVACAINE HCL 0.25% 30 ML VIAL As Ordered; -BUPR15TA PO; -BUPR300T34 PO; -CLAR10CA3 PO; -CLAR1TAB2 PO; -COLA100C5 PO; -LEXA1TAB PO; -LIDO5DIS41 TD; -METH1TAB40 PO; -MOTR200T44 PO; -ORTHTAB14 PO; -ORTHTAB15 PO; -PRAZ5CAP PO; -PROP10TA56 PO; -QUET1TAB8 PO; -QUET1TAB9 PO; -RISP0.5T21 PO; -SERO1TAB PO; -TOPA50TA8 PO; -TOPI100T9 PO; -TRAZ50TA11 PO; -TRAZO50TA PO; +TRIAMCINOLONE ACETONIDE SUSP 40 MG/ML VIAL (J3301) As Ordered; -TYLE325T5 PO; -VENL75CA2 PO; -VENL75TA2 PO; -ZANA2CAP PO; -ZOLM5TAB SL; +diazePAM 5 MG TAB As Ordered; +oxyCODONE 5MG TAB As Ordered
== END ==
LOC: M PAIN 15:00
DX: G89.29 Other chronic pain (principal); M79.1 Myalgia; F32.9 Major depressive disorder, single episode, unspecified; G47.00 Insomnia, unspecified; M54.2 Cervicalgia; F43.10 Post-traumatic stress disorder, unspecified; Z91.5 Personal history of self-harm; Z87.891 Personal history of nicotine dependence; Z79.899 Other long term (current) drug therapy
CPT/HCPCS: J3301

== ENCOUNTER → 2017-12-12 | Outpatient (CLI) | payer OTHER | LOC: M PAIN 13:45 | DX: M79.1 Myalgia (principal); M54.2 Cervicalgia; M25.512 Pain in left shoulder; G89.29 Other chronic pain; M25.511 Pain in right shoulder; F32.9 Major depressive disorder, single episode, unspecified; G47.00 Insomnia, unspecified; F43.10 Post-traumatic stress disorder, unspecified; Z79.899 Other long term (current) drug therapy; Z87.820 Personal history of traumatic brain injury; Z91.5 Personal history of self-harm; Z87.891 Personal history of nicotine dependence | CPT/HCPCS: G0463 ==

== ENCOUNTER → 2018-07-12 | Outpatient (CLI) | payer OTHER | LOC: M PAIN 14:30 | DX: M79.18 Myalgia, other site (principal); M54.2 Cervicalgia; M25.512 Pain in left shoulder; M25.511 Pain in right shoulder; G89.29 Other chronic pain; F32.9 Major depressive disorder, single episode, unspecified; G47.00 Insomnia, unspecified; F43.10 Post-traumatic stress disorder, unspecified; Z79.899 Other long term (current) drug therapy; Z87.820 Personal history of traumatic brain injury; Z91.5 Personal history of self-harm; Z87.891 Personal history of nicotine dependence | CPT/HCPCS: G0463 ==

== ENCOUNTER → 2018-07-25 | Outpatient (CLI) | payer OTHER | LOC: M PAIN 13:45 | DX: M79.18 Myalgia, other site (principal); M54.2 Cervicalgia; M25.511 Pain in right shoulder; M25.512 Pain in left shoulder; M54.6 Pain in thoracic spine; F32.9 Major depressive disorder, single episode, unspecified; G47.00 Insomnia, unspecified; Z79.899 Other long term (current) drug therapy; Z87.891 Personal history of nicotine dependence; Z87.820 Personal history of traumatic brain injury; Z91.5 Personal history of self-harm | CPT/HCPCS: J3301 ==